=== PATIENT | female | born 1955 | race Caucasian/White ===

== ENCOUNTER 2025-06-19 15:32 | Emergency (ER) | payer OTHER ==
[2025-06-19 16:14] LABS: #Basophils 0.03 10x3/uL (0.0-0.2); #Eosinophils Less than 0.03 10x3/uL (0.0-0.5); #Monocytes 0.47 10x3/uL (0.0-1.1); #Neutrophils 7.90 10x3/uL (1.5-8.4); %Basophils 0.3 % (0.0-2.0); %Eosinophils 0.1 % (0.0-6.0); %Lymphocytes 7.9 % (18.0-47.0); %Monocytes 5.1 % (0.0-10.0); %Neutrophils 86.4 % (40.0-75.0); Hematocrit 39.8 % (34.9-44.5); Hemoglobin 14.0 g/dL (12.0-15.5); Mean Corpuscular Hemoglobin 33.6 pg (27.0-33.0); Mean Corpuscular Volume 95.4 fL (81.6-98.3); Platelet Count 206 10x3/uL (150-450); Red Blood Cell (RBC) Count 4.17 10x6/uL (3.90-5.03); White Blood Cell (WBC) Count 9.15 10x3/uL (3.5-10.5)
[2025-06-19 16:26] LABS: ALT (SGPT) 41 U/L (Less than 34); AST (SGOT) 35 U/L (11-34); Albumin 4.3 g/dL (3.1-4.5); Alkaline Phosphatase 67 U/L (40-110); Anion Gap 15 mmol/L (10-20); BUN (Urea Nitrogen) 11 mg/dL (9.8-20.1); Bilirubin, Total 1.7 mg/dL (0.3-1.2); Calc. Creatinine Clearance 0 mL/min (70-130); Calcium 8.8 mg/dL (7.8-10.44); Carbon Dioxide 23 mmol/L (23-31); Chloride 108 mmol/L (98-107); Globulin 3.0 g/dL (2.4-3.5); Glucose 108 mg/dL (80-115); Potassium 4.2 mmol/L (3.5-5.1); Sodium 142 mmol/L (136-145)
[2025-06-19 16:32] LABS: Troponin I Less than 0.010 ng/mL (< 0.028)
== END 2025-06-19 17:12 | disposition home or self-care (01) ==
LOC: CSHERS 15:32
DX: T67.5XXA Heat exhaustion, unspecified, initial encounter (principal); Z55.6 Problems related to health literacy; X30.XXXA Exposure to excessive natural heat, initial encounter
CPT/HCPCS: 36415; 80053; 84484; 85025; 93005; 96360